=== PATIENT | female | born 1985 | race Caucasian/White ===

== ENCOUNTER 2017-04-07 17:26 | Emergency (ER) | payer MEDICAID, OTHER ==
[~2017-04-07] VITALS: Ht 162.6 cm; Wt 66.5 kg
[~2017-04-07 17:26] MED LIST: BUPR150CR PO; CRYS28TA PO; LEVO25TA4 PO
[2017-04-07 17:27] VITALS: BP 134/60; PULSE 117; RESP 18; TEMP 101.9; O2SAT 97
[2017-04-07] MEDS ORDERED: IOHEXOL 350 MG/ML 10 ML VIAL (for RAD DIAG) IVCONTRAST ONE (17:27)
--- NOTE | 2017-04-07 17:36 | PD ---
Physical Exam Date Seen by Provider: Apr 07, 2017 Time Seen by Provider: 17:32 Data Data Last Documented VS Vital Signs Date Time Temp Pulse Resp B/P (MAP) Pulse Ox O2 Delivery O2 Flow Rate FiO2 04/07/17 17:27 101.9 117 18 134/60 (84) 97 Room Air MDM Supervised Visit with DEACON: No Narrative Course 31 YO F with complaint of "kidney infection, I've had one before." Endorses left sided back pain, dysuria and cloudy urine x "2 or 3 weeks." LMP "about a month ago." States that she is not sexually active. Vitals reviewed. Patient seen in triage, awaiting bed placement. Santa Wilson Apr 07, 2017 17:36
[2017-04-07 19:05] LABS: BACTERIA, URINE MANY /hpf; BLOOD, URINE NEG (NEG); COMMENT (UR) CULTURE INDICATED; CULTURE IF INDICATED CULTURE INDICATED; GLUCOSE,URINE NEG (NEG); KETONE, URINE NEG (NEG); MUCUS URINE MOD /lpf (OCC); NITRITE,URINE NEG (NEG); SQUAMOUS EPITHELIAL CELL URINE 4 /hpf (0-5); URINE COLOR YELLOW (YELLW/STRAW)
[2017-04-07 20:28] LABS: AUTOMATED NEUTROPHIL # 6.1 TH/MM3 (1.8-7.7); BASOPHIL % 0.2 % (0.0-2.0); EOSINOPHIL % 0.4 % (0.0-4.0); HEMATOCRIT 38.8 % (35.0-46.0); HEMO FLAGS DIFF FINAL; LYMPH % 5.8 % (9.0-44.0); LYMPHOCYTE # 0.4 TH/MM3 (1.0-4.8); MEAN CELL VOLUME 86.7 FL (80.0-100.0); MEAN CORPUSCULAR HEMOGLOBIN 28.5 PG (27.0-34.0); MEAN CORPUSCULAR HGB CONC 32.9 % (32.0-36.0); MONO % 6.6 % (0.0-8.0); PLATELET COUNT 185 TH/MM3 (150-450); RED BLOOD COUNT 4.47 MIL/MM3 (4.00-5.30); RED CELL DISTRIBUTION WIDTH 13.5 % (11.6-17.2); WHITE BLOOD COUNT 7.1 TH/MM3 (4.0-11.0)
[2017-04-07 20:44] LABS: ALT (GPT) 17 U/L (10-53)
[2017-04-07 20:46] LABS: ALKALINE PHOSPHATASE 43 U/L (45-117); TOTAL BILIRUBIN ADULT 0.2 MG/DL (0.2-1.0)
[2017-04-07 20:49] LABS: ANION GAP 8 MEQ/L (5-15); AST (GOT) 14 U/L (15-37); BICARBONATE 26.2 MEQ/L (21.0-32.0); BLOOD UREA NITROGEN 15 MG/DL (7-18); CHLORIDE 102 MEQ/L (98-107); GLOMERULAR FILTRATION RATE 76 ML/MIN (>89); POTASSIUM 3.4 MEQ/L (3.5-5.1); SODIUM (NA) 136 MEQ/L (136-145)
[2017-04-07] MEDS ORDERED: SODIUM CHLOR 0.9% 1000 ML INJ 1,000 ML IV SCH ×2 (20:51)
--- NOTE | 2017-04-07 20:55 | PD ---
HPI Chief Complaint: Complaint Time Seen by Provider: 20:45 Travel History International Travel<30 days: No Contact w/Intl Traveler<30days: No Traveled to known affect area: No History of Present Illness HPI This is a 31-year-old female who presents for evaluation. She reports that 2 weeks ago she developed dysuria which was mild and she thought would go away. She reports that today she developed worsening dysuria as well as bilateral flank pain, lower abdominal pain, nausea, fevers and chills, sore throat, nasal congestion and headache. She feels like she has a "kidney infection" and she has had one in the past. She denies chest pain or shortness of breath, vomiting , diarrhea, vaginal bleeding, vaginal discharge, rash, recent travel. No history of IV drug abuse. No other complaints. PFSH Past Medical History Diminished Hearing: No ?: Unknown LMP: LAST MONTH : 2 Para: 1 Social History Alcohol Use: No Tobacco Use: No Substance Use: No Allergies-Medications (Allergen,Severity, Reaction): Coded Allergies: cefaclor (Unverified Allergy, Severe, 03/31/17) penicillin G (Unverified Allergy, Severe, 03/31/17) Reported Meds & Prescriptions Reported Meds & Active Scripts Active Phenergan (Promethazine HCl) 25 Mg Tablet 25 Mg PO Q6H PRN Levaquin (Levofloxacin) 500 Mg Tablet 1 Tab PO DAILY 7 Days Wellbutrin SR 12 HR (Bupropion HCl) 150 Mg Tab 150 Mg PO Q12HR Levothyroxine (Levothyroxine Sodium) 25 Mcg Tab 25 Mcg PO DAILY Cryselle-28 (Norgestrel-Ethinyl Estradiol) 0.3-30 Mg-Mcg Tab 1 Tab PO DAILY Review of Systems Except as stated in HPI: all other systems reviewed are Neg Physical Exam Narrative GENERAL: Well-developed well-nourished female in no acute distress answering questions properly. Vital signs have been reviewed. SKIN: Warm and dry. HEAD: Atraumatic. Normocephalic. EYES: Pupils equal and round. No scleral icterus. No injection or drainage. ENT: No nasal bleeding or discharge. Mucous membranes pink and moist. There is oropharyngeal erythema without exudate. NECK: Trachea midline. No JVD. There is mild tender anterior cervical lymphadenopathy. Neck supple full range of motion. CARDIOVASCULAR: Regular rate and rhythm. No murmur appreciated. RESPIRATORY: No accessory muscle use. Clear to auscultation. Breath sounds equal bilaterally. GASTROINTESTINAL: Abdomen soft, mild tenderness to palpation in lower quadrants without guarding. There is no rebound tenderness. MUSCULOSKELETAL: No obvious deformities. No edema. NEUROLOGICAL: Awake and alert. No obvious cranial nerve deficits. Motor grossly within normal limits. Normal speech. PSYCHIATRIC: Appropriate mood and affect; insight and judgment normal. Data Data Last Documented VS Vital Signs Date Time Temp Pulse Resp B/P (MAP) Pulse Ox O2 Delivery O2 Flow Rate FiO2 04/08/17 00:13 04/08/17 00:02 99.0 100 18 100 Room Air Orders Orders Urinalysis - C+S If Indicated (04/07/17 18:00) Ed Urine Pregnancytest Poc (04/07/17 18:00) Urine Culture (04/07/17 17:45) Complete Blood Count With Diff (04/07/17 19:34) Comprehensive Metabolic Panel (04/07/17 19:34) Lactic Acid Sepsis Protocol (04/07/17 20:51) Blood Culture (04/07/17 20:51) Sodium Chlor 0.9% 1000 Ml Inj (Ns 1000 M (04/07/17 20:51) Sodium Chlor 0.9% 1000 Ml Inj (Ns 1000 M (04/07/17 20:51) Ketorolac Inj (Toradol Inj) (04/07/17 21:00) Ondansetron Inj (Zofran Inj) (04/07/17 21:00) Ct Abd/Pel W Iv Contrast(Rout) (04/07/17 20:51) Influenzae A/B Antigen (04/07/17 20:51) Group A Rapid Strep Screen (04/07/17 20:51) Iv Access Insert/Monitor (04/07/17 21:38) Iohexol 350 Inj (Omnipaque 350 Inj) (04/07/17 17:27) Strep Culture (Group A) (04/07/17 21:30) Acetaminophen (Tylenol) (04/07/17 23:15) Levofloxacin 500 Mg Premix Inj (Levaquin (04/07/17 23:15) Labs Laboratory Tests Test 04/07/17 17:45 04/07/17 19:50 8/22/17 21:30 Urine Color YELLOW Urine Turbidity HAZY Urine pH 7.0 Urine Specific [place] 1.025 Urine Protein TRACE mg/dL Urine Glucose (UA) NEG mg/dL Urine Ketones NEG mg/dL Urine Occult Blood NEG Urine Nitrite NEG Urine Bilirubin NEG Urine Urobilinogen LESS THAN 2.0 MG/DL Urine Leukocyte Esterase TRACE Urine RBC 1 /hpf Urine WBC 8 /hpf Urine Squamous Epithelial Cells 4 /hpf Urine Bacteria MANY /hpf Urine Mucus MOD /lpf Microscopic Urinalysis Comment CULTURE INDICATED White Blood Count 7.1 TH/MM3 Red Blood Count 4.47 MIL/MM3 Hemoglobin 12.8 GM/DL Hematocrit 38.8 % Mean Corpuscular Volume 86.7 FL Mean Corpuscular Hemoglobin 28.5 PG Mean Corpuscular Hemoglobin Concent 32.9 % Red Cell Distribution Width 13.5 % Platelet Count 185 TH/MM3 Mean Platelet Volume 7.6 FL Neutrophils (%) (Auto) 87.0 % Lymphocytes (%) (Auto) 5.8 % Monocytes (%) (Auto) 6.6 % Eosinophils (%) (Auto) 0.4 % Basophils (%) (Auto) 0.2 % Neutrophils # (Auto) 6.1 TH/MM3 Lymphocytes # (Auto) 0.4 TH/MM3 Monocytes # (Auto) 0.5 TH/MM3 Eosinophils # (Auto) 0.0 TH/MM3 Basophils # (Auto) 0.0 TH/MM3 CBC Comment DIFF FINAL Differential Comment Blood Urea Nitrogen 15 MG/DL Creatinine 0.87 MG/DL Random Glucose 86 MG/DL Total Protein 7.5 GM/DL Albumin 4.0 GM/DL Calcium Level 9.1 MG/DL Alkaline Phosphatase 43 U/L Aspartate Amino Transf (AST/SGOT) 14 U/L Alanine Aminotransferase (ALT/SGPT) 17 U/L Total Bilirubin 0.2 MG/DL Sodium Level 136 MEQ/L Potassium Level 3.4 MEQ/L Chloride Level 102 MEQ/L Carbon Dioxide Level 26.2 MEQ/L Anion Gap 8 MEQ/L Estimat Glomerular Filtration Rate 76 ML/MIN Lactic Acid Level 0.9 mmol/L [facility] Medical Decision Making Medical Screen Exam Complete: Yes Emergency Medical Condition: Yes Medical Record Reviewed: Yes Differential Diagnosis Pyelonephritis, appendicitis, influenza, streptococcal pharyngitis, meningitis, pelvic inflammatory disease, tubo-ovarian abscess Narrative Course 31-year-old female who has had dysuria for the past few weeks presents now today with a one-day history of bilateral flank pain, lower abdominal pain, worsening dysuria, fevers, chills, myalgias, headache as well as sore throat. She is febrile and tachycardic. She is not toxic in appearance. Lab work was performed in triage revealing a normal WBC count, CMP is only notable for a potassium of 3.4. Urinalysis does reveal many bacteria with 8 wbc's resulting in a reflex culture. Given her lower abdominal pain, CT of the abdomen and pelvis is been ordered. Given the fever, lactic acid and blood cultures have been ordered. An influenza antigen rapid strep screen are also performed. I did discuss with the patient the possibility of performing a pelvic examination to assess for PID/TOA however the patient reports that she has not been sexually active any time recently and feels that this is highly unlikely. Additionally She is not having any vaginal bleeding or discharge. The patient' s CT of the abdomen and pelvis is unremarkable. She does feel improved after the administration of Toradol IV fluids and her heart rate has improved to 100. She continues to have a headache and some photophobia. She does not have any meningeal signs and she does not appear septic and bacterial meningitis is highly unlikely however given her symptoms and fever, Dr. Gilmore did discuss with the patient the option of performing lumbar puncture for this endeavor however she is declining which seems reasonable at this time. The patient will be treated for UTI pending the urine culture results with Levaquin as she is allergic to Ceclor, penicillin. She'll be given the first dose here. Discussed signs and symptoms that would warrant returning to the emergency room , she is stable for discharge. Diagnosis Primary Impression: Pyelonephritis Departure Forms: Work Release Enter return to work date: Apr 09, 2017 Additional Instructions: Stay well-hydrated and well-nourished. Tylenol and Motrin for fever per dosing instructions on the bottle. Phenergan for nausea. Take the antibiotic as prescribed. If you experience worsening symptoms return to the emergency room. Med/Other Pt SpecificInfo: Prescription(s) given Scripts Promethazine (Phenergan) 25 Mg Tablet 25 MG PO Q6H Y for NAUSEA OR VOMITING, #20 TAB 0 Refills Prov: Salvador Gilmore MD 04/07/17 Levofloxacin (Levaquin) 500 Mg Tablet 1 TAB PO DAILY for 7 Days Prov: Salvador Gilmore MD 04/07/17 Disposition: 01 DISCHARGE HOME Condition: Stable Dontae Angel Apr 07, 2017 20:55
[2017-04-07] MEDS ORDERED: KETOROLAC TROMETHAMINE 30 MG/ML (IVP) VIAL IV PUSH ONE (21:00)
[2017-04-07] MEDS ORDERED: ONDANSETRON HCL 4 MG/2 ML VIAL IV PUSH ONE (21:00)
[2017-04-07 21:04] VITALS: BP 126/58; PULSE 119; RESP 20; TEMP 103.1; O2SAT 100
--- NOTE | 2017-04-07 23:00 | RADRPT ---
EXAM DATE/TIME: 04/07/2017 22:40 [facility] COMPARISON: No previous studies available for comparison. INDICATIONS : lower abdomen pain. IV CONTRAST: 98 cc Omnipaque 350 (iohexol) IV ORAL CONTRAST: No oral contrast ingested. RADIATION DOSE: 5.80 CTDIvol (mGy) MEDICAL HISTORY : None SURGICAL HISTORY : None. ENCOUNTER: Initial ACUITY: 1 day PAIN SCALE: 5/10 LOCATION: Bilateral lower quadrant TECHNIQUE: Volumetric scanning of the abdomen and pelvis was performed. Using automated exposure control and ad justment of the mA and/or kV according to patient size, radiation dose was kept as low as reasonably achievable to obtain optimal diagnostic quality images. DICOM format image data is available electro nically for review and comparison. FINDINGS: LOWER LUNGS: The visualized lower lungs are clear. Bilateral breast implants are present. LIVER: Homogeneous density without lesion. There is no dilation of the biliary tree. No calcified gallston es. SPLEEN: Normal size without lesion. PANCREAS: Within normal limits. KIDNEYS: Normal in size and shape. There is no mass, stone or hydronephrosis. ADRENAL GLANDS: Within normal limits. VASCULAR: There is no aortic aneurysm. BOWEL/MESENTERY: The stomach, small bowel, and colon demonstrate no acute abnormality. There is no free intraperitone al air or fluid. Terminal ileum is normal. The appendix is not visualized. ABDOMINAL WALL: Within normal limits. RETROPERITONEUM: There is no lymphadenopathy. BLADDER: No wall thickening or mass. REPRODUCTIVE: Within normal limits. INGUINAL: There is no lymphadenopathy or hernia. MUSCULOSKELETAL: There are bilateral pars interarticularis defects where grade 1 anterolisthesis of L5 on S1. CONCLUSION: 1. No acute finding is identified to explain the clinical symptoms. 2. There are bilateral pars interarticularis defects at L5 with associated grade 1 anterolisthesis of L5 on S1. Sonu Tarango MD on April 07, 2017 at 22:54 Board Certified Radiologist. This report was verified electronically.
[2017-04-07 23:03] VITALS: BP 106/49; PULSE 100; RESP 18; TEMP 99.4; O2SAT 100
[2017-04-07] MEDS ORDERED: ACETAMINOPHEN 325 MG TAB PO ONE (23:15)
[2017-04-07] MEDS ORDERED: LEVOFLOXACIN 500 MG PREMIX INJ 100 ML IV ONE (23:15)
[2017-04-07] MEDS ORDERED: PROM25TA10 PO (23:16)
[2017-04-07] MEDS ORDERED: LEVA500T20 PO (23:16)
--- NOTE | 2017-04-07 23:20 | PD ---
Data Data Last Documented VS Vital Signs Date Time Temp Pulse Resp B/P (MAP) Pulse Ox O2 Delivery O2 Flow Rate FiO2 04/08/17 00:13 04/08/17 00:02 99.0 100 18 100 Room Air Orders Orders Urinalysis - C+S If Indicated (04/07/17 18:00) Ed Urine Pregnancytest Poc (04/07/17 18:00) Urine Culture (04/07/17 17:45) Complete Blood Count With Diff (04/07/17 19:34) Comprehensive Metabolic Panel (04/07/17 19:34) Lactic Acid Sepsis Protocol (04/07/17 20:51) Blood Culture (04/07/17 20:51) Sodium Chlor 0.9% 1000 Ml Inj (Ns 1000 M (04/07/17 20:51) Sodium Chlor 0.9% 1000 Ml Inj (Ns 1000 M (04/07/17 20:51) Ketorolac Inj (Toradol Inj) (04/07/17 21:00) Ondansetron Inj (Zofran Inj) (04/07/17 21:00) Ct Abd/Pel W Iv Contrast(Rout) (04/07/17 20:51) Influenzae A/B Antigen (04/07/17 20:51) Group A Rapid Strep Screen (04/07/17 20:51) Iv Access Insert/Monitor (04/07/17 21:38) Iohexol 350 Inj (Omnipaque 350 Inj) (04/07/17 17:27) Strep Culture (Group A) (04/07/17 21:30) Acetaminophen (Tylenol) (04/07/17 23:15) Levofloxacin 500 Mg Premix Inj (Levaquin (04/07/17 23:15) Labs Laboratory Tests Test 04/07/17 17:45 04/07/17 19:50 04/07/17 21:30 Urine Color YELLOW Urine Turbidity HAZY Urine pH 7.0 Urine Specific [place] 1.025 Urine Protein TRACE mg/dL Urine Glucose (UA) NEG mg/dL Urine Ketones NEG mg/dL Urine Occult Blood NEG Urine Nitrite NEG Urine Bilirubin NEG Urine Urobilinogen LESS THAN 2.0 MG/DL Urine Leukocyte Esterase TRACE Urine RBC 1 /hpf Urine WBC 8 /hpf Urine Squamous Epithelial Cells 4 /hpf Urine Bacteria MANY /hpf Urine Mucus MOD /lpf Microscopic Urinalysis Comment CULTURE INDICATED White Blood Count 7.1 TH/MM3 Red Blood Count 4.47 MIL/MM3 Hemoglobin 12.8 GM/DL Hematocrit 38.8 % Mean Corpuscular Volume 86.7 FL Mean Corpuscular Hemoglobin 28.5 PG Mean Corpuscular Hemoglobin Concent 32.9 % Red Cell Distribution Width 13.5 % Platelet Count 185 TH/MM3 Mean Platelet Volume 7.6 FL Neutrophils (%) (Auto) 87.0 % Lymphocytes (%) (Auto) 5.8 % Monocytes (%) (Auto) 6.6 % Eosinophils (%) (Auto) 0.4 % Basophils (%) (Auto) 0.2 % Neutrophils # (Auto) 6.1 TH/MM3 Lymphocytes # (Auto) 0.4 TH/MM3 Monocytes # (Auto) 0.5 TH/MM3 Eosinophils # (Auto) 0.0 TH/MM3 Basophils # (Auto) 0.0 TH/MM3 CBC Comment DIFF FINAL Differential Comment Blood Urea Nitrogen 15 MG/DL Creatinine 0.87 MG/DL Random Glucose 86 MG/DL Total Protein 7.5 GM/DL Albumin 4.0 GM/DL Calcium Level 9.1 MG/DL Alkaline Phosphatase 43 U/L Aspartate Amino Transf (AST/SGOT) 14 U/L Alanine Aminotransferase (ALT/SGPT) 17 U/L Total Bilirubin 0.2 MG/DL Sodium Level 136 MEQ/L Potassium Level 3.4 MEQ/L Chloride Level 102 MEQ/L Carbon Dioxide Level 26.2 MEQ/L Anion Gap 8 MEQ/L Estimat Glomerular Filtration Rate 76 ML/MIN Lactic Acid Level 0.9 mmol/L MDM Supervised Visit with DEACON: Yes Narrative Course I, Dr. Gilmore, have reviewed the advance practice practitioner's documentation and am in agreement, met with the patient face to face, made the diagnosis, and the medical decision making was done by me. *My assessment and Findings: This 31-year-old female presents with fever dysuria bilateral flank. Patient does have some minimal pyuria and bacteriuria, afebrile in the emergency department feeling much better fluids and Toradol. Polynephritis these be considered given her symptomology that her UA is not overwhelming. CAT scan of her abdomen was pursued and is underwhelming as well. She appears well currently Brudzinski signs negative. She was offered examination by both me and Dontae Angel and declined both times. She states that she is low risk for STDs. Meningitis was briefly considered given the fever and headache however I believe that she is fairly low risk she has not had any foreign travel was not immunocompromise has not been on a college [place]. She was offered an LP however I discussed that I believe that the risks outweigh the pretest probability. She would like to try empiric antibiotics and discussed return to ED criteria at length her. Scripts Promethazine (Phenergan) 25 Mg Tablet 25 MG PO Q6H Y for NAUSEA OR VOMITING, #20 TAB 0 Refills Prov: Salvador Gilmore MD 04/07/17 Levofloxacin (Levaquin) 500 Mg Tablet 1 TAB PO DAILY for 7 Days Prov: Salvador Gilmore MD 04/07/17 Disposition: 01 DISCHARGE HOME Condition: Stable Salvador Gilmore MD Apr 07, 2017 23:20
[2017-04-08 00:02] VITALS: BP 103/59; PULSE 100; RESP 18; TEMP 99; O2SAT 100
== END 2017-04-08 00:15 | disposition home or self-care (01) ==
LOC: NEPD 17:26
DX: N10 Acute pyelonephritis (principal); B96.1 Klebsiella pneumoniae [K. pneumoniae] as the cause of diseases classified elsewhere
CPT/HCPCS: 74177; 80053; 81001; 83605; 84703; 85025; 87040; 87077; 87081; 87086; 87186; 87804; 87880; 96361; 96374; 96375; 99285; J1885; J1956; J2405; J7030; Q9967

== ENCOUNTER 2017-07-03 01:25 | Emergency (ER) | payer OTHER ==
[~2017-07-03] VITALS: Ht 162.6 cm; Wt 65.0 kg
[~2017-07-03 01:25] MED LIST changes: +LEVA500T33 PO; +PROM25TA10 PO
[2017-07-03 01:28] VITALS: BP 133/76; PULSE 98; RESP 16; TEMP 98.2; O2SAT 96
[2017-07-03 01:44] VITALS: BP 120/62; PULSE 90; RESP 18; O2SAT 99
--- NOTE | 2017-07-03 02:19 | PD ---
HPI Chief Complaint: Laceration/Skin Injury Time Seen by Provider: 01:42 Travel History International Travel<30 days: No Contact w/Intl Traveler<30days: No Traveled to known affect area: No History of Present Illness HPI 31-year-old female here by private vehicle for evaluation of neck pain and bilateral hand lacerations after trying to fix a glass shower divider which subsequently shattered. Patient has a small laceration to her left anterior wrist as well as a laceration to the dorsum of her right third and fifth fingers. She states that she fell backwards and struck the back of her head. She is not sure if she lost consciousness. She now complains of moderate to severe mid neck and upper back pain which is constant, worse with movements. She believes her tetanus is up-to-date. No other injuries. No paresthesias. [place] collar placed at time of my assessment. PFSH Past Medical History Diminished Hearing: No Kidney Stones: Yes Immunizations Current: Yes Tetanus Vaccination: < 5 Years Influenza Vaccination: No ?: Not LMP: 06/17/17 : 2 Para: 1 Social History Alcohol Use: Yes ([facility]) Tobacco Use: Yes Substance Use: No Allergies-Medications (Allergen,Severity, Reaction): Coded Allergies: cefaclor (Unverified Allergy, Severe, 07/03/17) penicillin G (Unverified Allergy, Severe, 07/03/17) Reported Meds & Prescriptions Reported Meds & Active Scripts Active Review of Systems Except as stated in HPI: all other systems reviewed are Neg Physical Exam Narrative GENERAL: Well-developed, well-nourished, awake, alert, GCS 15. SKIN: Focused skin assessment warm/dry. Superficial/horizontal laceration approximately 2 cm in length to the volar aspect of the distal wrist/just proximal to the thenar eminence. There does not appear to be any foreign body. There is mild venous oozing. There does not appear to be tendinous injury. There is a superficial laceration to the dorsum of the right third finger over the PIP joint as well as the dorsum of the right fifth finger over the distal phalanx. There does not appear to be a foreign body in either of these wounds, and the tendons and ligaments appear to be intact. There is mild venous oozing from these wounds. HEAD: Atraumatic. Normocephalic. EYES: Pupils equal and round. No scleral icterus. No injection or drainage. ENT: Mucous membranes pink and moist. NECK: Trachea midline. No JVD. Moderate midline cervical spine tenderness without step-off. CARDIOVASCULAR: Regular rate and rhythm. Normal capillary refill in bilateral hands. RESPIRATORY: No accessory muscle use. Clear to auscultation. Breath sounds equal bilaterally. GASTROINTESTINAL: Abdomen soft, non-tender, nondistended. Hepatic and splenic margins not palpable. MUSCULOSKELETAL: No obvious deformities. No clubbing. No cyanosis. No edema. Normal range of flexion and extension in the area left wrist. Normal range of motion in flexion, extension, and opposition in the left thumb. Normal range of flexion and extension in all fingers against resistance. There is mild midline thoracic spine tenderness without step-off. No midline lumbar spine tenderness or step-off. NEUROLOGICAL: Awake and alert. No obvious cranial nerve deficits. Motor grossly within normal limits. Normal speech. Normal sensation in bilateral hands. PSYCHIATRIC: Appropriate mood and affect; insight and judgment normal. Data Data Last Documented VS Vital Signs Date Time Temp Pulse Resp B/P (MAP) Pulse Ox O2 Delivery O2 Flow Rate FiO2 07/03/17 01:44 90 18 120/62 (81) 99 Room Air 07/03/17 01:28 98.2 Orders Orders Ed Urine Pregnancytest Poc (07/03/17 01:54) Ct Brain W/O Iv Contrast(Rout) (07/03/17 ) Ct Cerv Spine W/O Contrast (07/03/17 ) Ct Thor Spine W/O Contrast (07/03/17 ) Hand, Complete ([id number]) (07/03/17 ) Hand, Complete ([id number]) (07/03/17 ) Ibuprofen (Motrin) (07/03/17 02:30) Acetamin-Hydrocod 325-5 Mg (Lynn 5-325 (07/03/17 03:30) MDM Medical Decision Making Medical Screen Exam Complete: Yes Emergency Medical Condition: Yes Differential Diagnosis hand lacerations, cervical spine injury, intracranial trauma, thoracic spine injury, tendinous injury Narrative Course Left wrist and right finger lacerations were repaired by my PA Gilberto Mitchell. Each wound was thoroughly irrigated and explored in a bloodless field and there did not appear to be any tendon or ligament injuries. CT head read as negative noncontrast CT brain. CT cervical spine read as reversal of the upper cervical lordosis without spondylolisthesis. No evidence of fracture or compression deformity. CT thoracic spine read as negative thoracic spine. Left hand x-ray read as laceration of the lateral wrist with several tiny density suggesting foreign bodies. The osseous structures are grossly intact. Right hand x-ray read as no radiopaque foreign body seen. No fracture seen. JERSON Mitchell repaired the wounds. He also thoroughly irrigated the left wrist laceration and rolled a cotton tip applicator through it. He did not visualize any obvious foreign bodies. Patient was made aware that there could be retained foreign body in the wound. She was made aware of all radiographic findings. She was advised to follow-up with a hand surgeon this week. Suture removal in 10 days. She was informed on when to return to the emergency department. She verbalizes understanding and agreement with plan. Diagnosis Primary Impression: Fall Qualified Codes: W19.XXXA - Unspecified fall, initial encounter Additional Impressions: Laceration of multiple sites of hand and fingers Qualified Codes: S61.419A - Laceration without foreign body of unspecified hand, initial encounter; S61.219A - Laceration without foreign body of unspecified finger without damage to nail, initial encounter Cervical strain Qualified Codes: S16.1XXA - Strain of muscle, fascia and tendon at neck level , initial encounter Referrals: Yolande Angel MD 3 days Hand surgeon Primary Care Physician 3 days Additional Instructions: Follow-up with hand surgeon Dr. Angel or hand surgeon of your choice this week. Have sutures removed in 10 days. Return to the emergency Department sooner for worsening symptoms or any other concerns as discussed. Scripts Cyclobenzaprine (Flexeril) 10 Mg Tab 10 MG PO TID for Muscle Spasm, #10 TAB 0 Refills Prov: Blaine Su MD 07/03/17 Disposition: 01 DISCHARGE HOME Condition: Stable Blaine Su MD Jul 03, 2017 02:18
[2017-07-03] MEDS ORDERED: IBUPROFEN 600 MG TAB PO ONE (02:30)
--- NOTE | 2017-07-03 02:40 | RADRPT ---
EXAM DATE/TIME: 07/03/2017 01:56 [facility] COMPARISON: No previous studies available for comparison. INDICATIONS : Laceration, foreign body. MEDICAL HISTORY : None. SURGICAL HISTORY : None. ENCOUNTER: Initial ACUITY: 1 day PAIN SCORE: 2/10 LOCATION: Right upper extremity hand. FINDINGS: Three-view examination of the right hand demonstrates the osseous structures in normal alignment with out evidence of fracture or periosteal reaction. There is mild soft tissue swelling about the PIP re gion of the 3rd digit. No significant arthropathy. No radiopaque foreign body is seen. CONCLUSION: 1. No radiopaque foreign body seen. 2. No fracture seen. Keo Patrick MD on July 03, 2017 at 2:38 Board Certified Radiologist. This report was verified electronically.
--- NOTE | 2017-07-03 02:42 | RADRPT ---
EXAM DATE/TIME: 07/03/2017 02:03 [facility] COMPARISON: No previous studies available for comparison. INDICATIONS : Laceration, foreign body. MEDICAL HISTORY : None. SURGICAL HISTORY : None. ENCOUNTER: Initial ACUITY: 1 day PAIN SCORE: 7/10 LOCATION: Left upper extremity hand FINDINGS: Three-view examination of the left hand demonstrates soft tissue abnormality about the lateral wrist with linear lucency suggesting a laceration. There also several tiny punctate densities adjacent to the laceration which could represent a foreign bodies. These are best seen on the oblique view. The osseous structures of the hand are grossly intact. No evidence of fracture or significant arthropat hy. CONCLUSION: Laceration lateral wrist with several tiny densities suggesting foreign bodies. The osseous structur es are grossly intact. Keo Patrick MD on July 03, 2017 at 2:39 Board Certified Radiologist. This report was verified electronically.
--- NOTE | 2017-07-03 03:13 | PD ---
Physical Exam Date Seen by Provider: Jul 03, 2017 Time Seen by Provider: 03:09 Data Data Last Documented VS Vital Signs Date Time Temp Pulse Resp B/P (MAP) Pulse Ox O2 Delivery O2 Flow Rate FiO2 07/03/17 01:44 90 18 120/62 (81) 99 Room Air 07/03/17 01:28 98.2 Orders Orders Ed Urine Pregnancytest Poc (07/03/17 01:54) Ct Brain W/O Iv Contrast(Rout) (07/03/17 ) Ct Cerv Spine W/O Contrast (07/03/17 ) Ct Thor Spine W/O Contrast (07/03/17 ) Hand, Complete ([id number]) (07/03/17 ) Hand, Complete ([id number]) (07/03/17 ) Ibuprofen (Motrin) (07/03/17 02:30) MDM Medical Record Reviewed: Yes Supervised Visit with DEACON: Yes Interpretation(s) Last 24 hours Impressions Hand X-Ray 07/03/17 0000 Signed Impressions: Service Date/Time: Monday, July 03, 2017 01:56 - CONCLUSION: 1. No radiopaque foreign body seen. 2. No fracture seen. Keo Patrick MD Hand X-Ray 07/03/17 0000 Signed Impressions: Service Date/Time: Monday, July 03, 2017 02:03 - CONCLUSION: Laceration lateral wrist with several tiny densities suggesting foreign bodies. The osseous structures are grossly intact. Keo Patrick MD Differential Diagnosis MDM: High Differential diagnoses: Fracture, sprain, strain, dislocation, contusion, neurovascular injury Narrative Course Patient's lacerations are closed with sutures Procedures Procedure Narrative LACERATION LOCATION: Left volar wrist LENGTH: 2 cm NUMBER OF STITCHES/ROD: 3 REPAIR: The area of the laceration was prepped with Betadine and sterilely draped. The laceration was infiltrated with 1% lidocaine. The wound was copiously irrigated and cleansed using saline Q-tips. Tiny flecks of glass removed. No tendon injury or neurovascular injury. The wound was closed using 5-0 proline. This was a simple single layer repair. A sterile dressing was applied. The patient was advised to keep the dressing clean and dry. Patient tolerated the procedure well. LACERATION LOCATION: Right middle finger LENGTH: 1 cm NUMBER OF STITCHES/ROD: 3 REPAIR: The area of the laceration was prepped with Betadine and sterilely draped. The laceration was infiltrated with 1% lidocaine. The wound was copiously irrigated and explored without evidence of foreign body, tendon injury or neurovascular injury. The wound was closed using 5-0 proline. This was a simple single layer repair. A sterile dressing was applied. The patient was advised to keep the dressing clean and dry. Patient tolerated the procedure well. Condition: Stable Viet Wise Jul 03, 2017 03:13
--- NOTE | 2017-07-03 03:25 | RADRPT ---
EXAM DATE/TIME: 07/03/2017 02:29 [facility] COMPARISON: CT BRAIN W/O CONTRAST, December 06, 2015, 10:21. INDICATIONS : Trauma, fall through glass shower door. RADIATION DOSE: 34.84 CTDIvol (mGy) MEDICAL HISTORY : None SURGICAL HISTORY : None. ENCOUNTER: Initial ACUITY: 1 day PAIN SCALE: 3/10 LOCATION: cranial TECHNIQUE: Multiple contiguous axial images were obtained of the head. Using automated exposure control and adj ustment of the mA and/or kV according to patient size, radiation dose was kept as low as reasonably a chievable to obtain optimal diagnostic quality images. DICOM format image data is available electro nically for review and comparison. FINDINGS: CEREBRUM: The ventricles are normal for age. No evidence of midline shift, mass lesion, hemorrhage or acute in farction. No extra-axial fluid collections are seen. POSTERIOR FOSSA: The cerebellum and brainstem are intact. The 4th ventricle is midline. The cerebellopontine angle i s unremarkable. EXTRACRANIAL: The visualized portion of the orbits is intact. SKULL: The calvaria is intact. No evidence of skull fracture. CONCLUSION: Negative noncontrast CT brain. Keo Patrick MD on July 03, 2017 at 3:22 Board Certified Radiologist. This report was verified electronically.
--- NOTE | 2017-07-03 03:27 | RADRPT ---
EXAM DATE/TIME: 07/03/2017 02:29 [facility] COMPARISON: CT CERVICAL SPINE W/O CONTRAST, December 06, 2015, 10:21. INDICATIONS : Trauma, fall through glass shower door. RADIATION DOSE: 20.53 CTDIvol (mGy) MEDICAL HISTORY : None SURGICAL HISTORY : None. ENCOUNTER: Initial ACUITY: 1 day PAIN SCALE: 4/10 LOCATION: neck TECHNIQUE: Volumetric scanning of the cervical spine was performed. Multiplanar reconstructions in the sagittal, coronal and oblique axial planes were performed. Using automated exposure control and adjustment o f the mA and/or kV according to patient size, radiation dose was kept as low as reasonably achievable to obtain optimal diagnostic quality images. DICOM format image data is available electronically f or review and comparison. FINDINGS: There is reversal of the cervical lordosis from C2 through C4. Vertebral body height is maintained. No evidence of spondylolisthesis. Posterior elements are normal alignment without evidence of jose d or perched facets. The spinous processes are intact. The atlantoaxial articulation is intact. C2-C3: No fracture seen. The bony neural foramina are patent. C3-C4: No fracture seen. The bony neural foramina are patent. C4-C5: No fracture seen. The bony neural foramina are patent. C5-C6: No fracture seen. The bony neural foramina are patent. C6-C7: No fracture seen. The bony neural foramina are patent. C7-T1: No fracture seen. The bony neural foramina are patent. CONCLUSION: 1. Reversal of the upper cervical lordosis without spondylolisthesis. 2. No evidence of fracture or compression deformity. Keo Patrick MD on July 03, 2017 at 3:23 Board Certified Radiologist. This report was verified electronically.
[2017-07-03] MEDS ORDERED: ACETAMINOPHEN/HYDROcodone 325 MG/5 MG TAB PO ONE (03:30)
--- NOTE | 2017-07-03 03:30 | RADRPT ---
EXAM DATE/TIME: 07/03/2017 02:33 [facility] COMPARISON: No previous studies available for comparison. INDICATIONS : Trauma, fall through glass shower door. RADIATION DOSE: 35.86 CTDIvol (mGy) MEDICAL HISTORY : None SURGICAL HISTORY : None. ENCOUNTER: Initial ACUITY: 1 day PAIN SCALE: 5/10 LOCATION: Paraspinal TECHNIQUE: Volumetric scanning of the thoracic spine was performed. Multiplanar reconstructions in the sagittal , coronal and oblique axial planes were performed. Using automated exposure control and adjustment o f the mA and/or kV according to patient size, radiation dose was kept as low as reasonably achievable to obtain optimal diagnostic quality images. DICOM format image data is available electronically f or review and comparison. FINDINGS: The vertebral bodies of the thoracic spine are in normal alignment without evidence of subluxation. Vertebral body height is maintained. No fractures are seen. T1-T2: No fracture seen. The bony neural foramina are patent. T2-T3: No fracture seen. The bony neural foramina are patent. T3-T4: No fracture seen. The bony neural foramina are patent. T4-T5: No fracture seen. The bony neural foramina are patent. T5-T6: No fracture seen. The bony neural foramina are patent. T6-T7: No fracture seen. The bony neural foramina are patent. T7-T8: No fracture seen. The bony neural foramina are patent. T8-T9: No fracture seen. The bony neural foramina are patent. T9-T10: No fracture seen. The bony neural foramina are patent. T10-T11: No fracture seen. The bony neural foramina are patent. T11-T12: No fracture seen. The bony neural foramina are patent. T12-L1: No fracture seen. The bony neural foramina are patent. CONCLUSION: Negative CT thoracic spine. Keo Patrick MD on July 03, 2017 at 3:27 Board Certified Radiologist. This report was verified electronically.
[2017-07-03] MEDS ORDERED: CYCL10TA PO (03:52)
== END 2017-07-03 03:58 | disposition home or self-care (01) ==
LOC: NEPE 01:25
DX: S16.1XXA Strain of muscle, fascia and tendon at neck level, initial encounter (principal); S61.512A Laceration without foreign body of left wrist, initial encounter; S61.212A Laceration without foreign body of right middle finger without damage to nail, initial encounter; S61.216A Laceration without foreign body of right little finger without damage to nail, initial encounter; S09.90XA Unspecified injury of head, initial encounter; W01.110A Fall on same level from slipping, tripping and stumbling with subsequent striking against sharp glass, initial encounter; Y93.89 Activity, other specified
CPT/HCPCS: 12002; 70450; 72125; 72128; 73130; 84703